=== PATIENT | male | born 1935 | race Caucasian/White ===

== ENCOUNTER 2020-07-07 18:09 | Emergency (ER) | payer MEDICARE, MEDICAID ==
[~2020-07-07] VITALS: Ht 180.3 cm; Wt 87.1 kg
[2020-07-07] MEDS ORDERED: CARVEDILOL25 MG PO (18:10)
[2020-07-07] MEDS ORDERED: IMDUR 60 MG TAB60 M1 PO (18:11)
[2020-07-07] MEDS ORDERED: PLAVIX 75 MG TA75 MG PO (18:11)
[2020-07-07] MEDS ORDERED: VYZULTA5 ML OPHTHALMIC (18:11)
[2020-07-07] MEDS ORDERED: SENNA PLUS TAB1 EACH PO (18:12)
[2020-07-07] MEDS ORDERED: MIRALAX119 GM PO (18:12)
[2020-07-07] MEDS ORDERED: FLOMAX0.4 MG PO (18:12)
[2020-07-07] MEDS ORDERED: LISINOPRIL2.5 MG PO (18:12)
[2020-07-07] MEDS ORDERED: TYLENOL325 MG PO (18:13)
[2020-07-07] MEDS ORDERED: THROAT LOZENGE1 EACH PO (18:13)
[2020-07-07 19:22] LABS: ABSOLUTE EOSINOPHILS 0.2 thou/uL (0.0-0.7); ABSOLUTE LYMPHOCYTES 1.2 thou/uL (0.8-5.3); ABSOLUTE MONOCYTES 0.6 thou/uL (0.0-1.2); ABSOLUTE NEUTROPHILS 4.7 thou/uL (1.6-8.1); BASOPHILS 0.7 %; EOSINOPHILS 2.8 %; HEMATOCRIT 33.6 % (42.0-52.0); HEMOGLOBIN 11.4 gm/dL (14.0-18.0); LYMPHOCYTES 18.3 %; MCH 31.3 pg (26.0-34.0); MCV 91.9 fL (80.0-100.0); NUCLEATED RBCS 0 /100WBC; PLATELET COUNT* 180 thou/uL (150-400); POLYS 69.2 %; RBC 3.66 mil/uL (4.50-6.00); RDW-CV 14.7 % (10.5-14.5); WBC 6.8 thou/uL (4.0-11.0)
[2020-07-07 19:28] LABS: CALCIUM 8.8 mg/dL (8.5-10.1); CREATININE 1.1 mg/dL (0.6-1.3); POTASSIUM 3.7 mmol/L (3.5-5.1)
[2020-07-07 19:30] LABS: URINE BILIRUBIN NEGATIVE (Negative); URINE BLOOD NEGATIVE (Negative); URINE CLARITY CLEAR; URINE COLOR YELLOW; URINE GLUCOSE-RANDOM NEGATIVE (Negative); URINE KETONES NEGATIVE (Negative); URINE LEUKOCYTES-REFLEX NEGATIVE (Negative); URINE NITRITE-REFLEX NEGATIVE (Negative); URINE PROTEIN NEGATIVE (Negative); URINE UROBILINOGEN 0.2 E.U./dl (0.2-1.0)
[2020-07-07 19:32] LABS: APTT 27.6 Seconds (25.0-31.3); PROTIME 10.7 Seconds (9.20-11.50)
[2020-07-07 19:33] LABS: ALBUMIN 3.3 g/dL (3.4-5.0); TOTAL BILIRUBIN 0.7 mg/dL (<0.1-1.0); TOTAL PROTEIN 7.1 g/dL (6.4-8.2)
[2020-07-07] MEDS ORDERED: DOXYCYCLINE 10100 MG PO (20:26)
[2020-07-07 21:05] VITALS: BP 103/31
--- NOTE | 2020-07-08 12:44 | EKG ---
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: [facility] : 1935 Requested By: Urmila Cabrera Order Number: [id number] MD: Derik Cramer Measurements Intervals [place] Rate: 74 P: 40 ND: 175 QRS: -24 QRSD: 120 T: -59 QT: 412 QTc: 457 Interpretive Statements Sinus rhythm Nonspecific intraventricular conduction delay Anterolateral infarct, age indeterminate No previous ECG available for comparison Electronically Signed On 07-08-2020 12:44:11 CDT by Derik Cramer [email or web address] <ELECTRONICALLY SIGNED> By: Derik Cramer MD, [facility] 07/08/20 1244 1824 1824 Derik Cramer MD, [facility] /EPI
== END 2020-07-07 21:07 | disposition home or self-care (01) ==
LOC: M.ERS 18:09
PROVIDERS: Nurse Practitioner Family
DX: S51.012A Laceration without foreign body of left elbow, initial encounter (principal); R05 Cough; I10 Essential (primary) hypertension; Z79.899 Other long term (current) drug therapy; W18.30XA Fall on same level, unspecified, initial encounter; Y93.89 Activity, other specified; Y92.128 Other place in nursing home as the place of occurrence of the external cause; Y99.9 Unspecified external cause status